=== PATIENT | male | born 1950 | race Caucasian/White ===

== ENCOUNTER 2017-03-22 12:31 | Day surgery (SDC) | payer MEDICARE, BC ==
[~2017-03-22] VITALS: Ht 162.6 cm; Wt 97.2 kg
[~2017-03-22 12:31] MED LIST: CHOLESTEROL; [UNRECOGNIZED DRUG - OTHER]
[2017-03-22] MEDS ORDERED: PROPOFOL 40 ML ONE (15:34)
[2017-03-22 15:47] VITALS: BP 140/91; PULSE 84; RESP 13
[2017-03-22 15:49] VITALS: Ht 162.6 cm; Wt 97.2 kg
[2017-03-22] MEDS ORDERED: PROPOFOL 20 ML ONE (16:02)
--- NOTE | 2017-03-22 20:20 | GILP ---
DATE OF PROCEDURE: 03/22/2017 PROCEDURE PERFORMED: Colonoscopy followed by ablation. BRIEF HISTORY AND INDICATION: The patient is being evaluated for history of colon polyps. PREMEDICATION: Monitored anesthesia care by anesthesiologist. INSTRUMENT USED: Colonoscope. PREPARATION: Adequate. TECHNIQUE: After informed consent, with the patient/relatives understanding the procedure, its indications potential risks and complications, including but not limited to: allergic reaction, bleeding, perforation, infection, missed lesions and after all pertinent questions were answered to the patient's satisfaction, the patient/relatives signed the witnessed informed consent. Following this, premedication was administered slowly IV push by under careful cardiovascular and respiratory monitoring with pulse oximetry, automatic blood pressure and patient monitor. Once the sedative effect was achieved, the patient was placed in the left lateral decubitus position, digital rectal examination was performed. The colonoscope was then introduced and advanced under visual control throughout all segments of the colon including: the rectum, sigmoid, descending colon, splenic flexure, transverse colon, hepatic flexure, ascending colon and finally reaching the cecum which was clearly identified by transillumination, finger indentation and the ileocecal valve. Careful examination of the mucosa of the lower gastrointestinal tract both on insertion as well as withdrawal of the instrument disclosed the following findings: RECTAL EXAMINATION: Small external hemorrhoids are present. No evidence of perirectal disease, no masses. COLONIC MUCOSA: The colonic mucosa is remarkable for the presence of a few diverticulum in the left side of the colon. There is a 4 mm sessile polyp in the sigmoid colon which was completely ablated with biopsy forceps. The ileocecal valve was identified and appears unremarkable, as was the appendiceal orifices. The instrument was then withdrawn. On withdraw of the instrument no other significant abnormalities were noted with the exception of moderate sized internal hemorrhoids. The patient tolerated the procedure well and was transferred out of the [facility] awake and in good condition to continue recovery under observation. IMPRESSION: 1. 4 mm sessile polyp in sigmoid colon, ablated. 2. Mild left sided diverticulosis. 3. Moderate sized internal hemorrhoids and small external hemorrhoids. RECOMMENDATIONS: The patient will continue present regimen. Pathology will be reviewed as soon as available. Further recommendations will depend on clinical course, as well as review of biopsies. Annual hemoccult stool testing is recommended and surveillance colonoscopy in 5 years is also recommended. Dictated By: Samantha Warren MD /[email or web address] /Document#: [id number]
--- NOTE | 2017-03-23 02:30 | GILP ---
DATE OF PROCEDURE: 03/22/2017 PROCEDURE: Colonoscopy with probable ablation HISTORY AND INDICATIONS: The patient is here with history of colonic polyps. PREMEDICATION: Anesthesia by anesthesiologist. INSTRUMENT USED: Olympus colonoscope. PREPARATION: Adequate. TECHNIQUE: After informed consent, with the patient/relatives understanding the procedure, its indications potential risks and complications, including but not limited to: allergic reaction, bleeding, perforation, infection, missed lesions and after all pertinent questions were answered to the patient's satisfaction, the patient/relatives signed the witnessed informed consent. Following this, premedication was administered slowly IV push by under careful cardiovascular and respiratory monitoring with pulse oximetry, automatic blood pressure and monitor tech. Once the sedative effect was achieved, the patient was placed in the left lateral decubitus position, digital rectal examination was performed. The colonoscope was then introduced and advanced under visual control throughout all segments of the colon including: the rectum, sigmoid, descending colon, splenic flexure, transverse colon, hepatic flexure, ascending colon and finally reaching the cecum which was clearly identified by transillumination, finger indentation and the ileocecal valve. Careful examination of the mucosa of the lower gastrointestinal tract both on insertion as well as withdrawal of the instrument disclosed the following findings: RECTAL EXAMINATION: Rectal exam showed small external hemorrhoids. COLONIC MUCOSA: 1. Remarkable for left-sided diverticulosis, which is mild. 2. There is a 4-mm polyp in the sigmoid colon, which was completely ablated with biopsy forceps. The instrument was advanced to the cecum where the ileocecal valve and appendiceal orifices were clearly identified and appeared unremarkable. The instrument was then withdrawn, re-examined the mucosa in detail. No additional abnormalities are noted with the exception of moderate-sized internal hemorrhoids. IMPRESSION: 1. Four-mm sessile polyp, sigmoid colon ablated. 2. Mild left-sided diverticulosis. 3. Moderate-sized internal hemorrhoids and small external hemorrhoids. RECOMMENDATIONS: The patient will follow-up as an outpatient. Pathology will review this when available. Hemoccult stool testing is recommended. Surveillance colonoscopy in 5 years is recommended. Dictated By: Samantha Warren MD /[email or web address] /Document#: [id number]
== END 2017-03-22 18:11 | disposition home or self-care (01) ==
LOC: GIL 12:31
PROVIDERS: ATTEND Internal Medicine Gastroenterology
DX: D12.5 Benign neoplasm of sigmoid colon (principal); K57.90 Diverticulosis of intestine, part unspecified, without perforation or abscess without bleeding; K64.8 Other hemorrhoids; K64.4 Residual hemorrhoidal skin tags; I10 Essential (primary) hypertension; E11.9 Type 2 diabetes mellitus without complications; E78.5 Hyperlipidemia, unspecified
CPT/HCPCS: 88305